=== PATIENT | female | born 1980 | race Caucasian/White ===

== ENCOUNTER 2017-09-20 09:49 | Emergency (ER) | payer OTHER ==
[~2017-09-20] VITALS: Ht 177.8 cm; Wt 67.1 kg
[2017-09-20] MEDS ORDERED: AMBIEN 5 MG TABL5 M1 PO (09:58)
[2017-09-20] MEDS ORDERED: TOBRAMYCIN SULFA5 M1 OPHTHALMIC (10:24)
[2017-09-20 10:36] VITALS: BP 128/68
== END 2017-09-20 10:37 | disposition home or self-care (01) ==
LOC: M.ERS 09:49
DX: S05.02XA Injury of conjunctiva and corneal abrasion without foreign body, left eye, initial encounter (principal); Z88.8 Allergy status to other drugs, medicaments and biological substances; X58.XXXA Exposure to other specified factors, initial encounter; Y93.89 Activity, other specified; Y92.89 Other specified places as the place of occurrence of the external cause; Y99.8 Other external cause status